=== PATIENT | female | born 1940 | race Native Hawaiian/Other Pacific Islander ===

== ENCOUNTER 2018-02-17 08:20 | Day surgery (SDC) | payer OTHER ==
[2018-02-17 08:54] LABS: PLATELET COUNT 477 K/uL (152-353)
[2018-02-17 09:09] LABS: PARTIAL THROMBOPLASTIN TIME 23.2 SECONDS (24.5-33.6)
[2018-02-17 09:29] LABS: POTASSIUM 5.2 mmol/L (3.6-5.2)
== END 2018-02-17 13:52 | disposition home or self-care (01) ==
LOC: OR 08:20
PROVIDERS: Student in an Organized Health Care Education/Training Program
PROC: 06BY4ZC Excision of Hemorrhoidal Plexus, Percutaneous Endoscopic Approach (ICD-10-PCS; principal; 2018-02-17)
DX: K64.2 Third degree hemorrhoids (principal)
CPT/HCPCS: 80053; 85027; 85610; 85730; J0690; J2001; J2405; J2704; J2765; J3010; J3490

== ENCOUNTER 2018-07-15 11:14 | Outpatient (CLI) | payer OTHER ==
[2018-07-15 11:31] LABS: PLATELET COUNT 690 K/uL (152-353)
== END 2018-07-15 21:35 | disposition home or self-care (01) ==
LOC: LABW 11:14
PROVIDERS: Internal Medicine Cardiovascular Disease
DX: R53.81 Other malaise (principal); R53.83 Other fatigue
CPT/HCPCS: 36415; 85027

== ENCOUNTER 2019-03-03 09:24 | Outpatient (CLI) | payer OTHER | END 2019-03-03 23:59 | LOC: RESP 09:24 | DX: I25.10 Atherosclerotic heart disease of native coronary artery without angina pectoris (principal) | CPT/HCPCS: 93306 ==

== ENCOUNTER 2020-02-10 14:39 | Outpatient (CLI) | payer OTHER | END 2020-02-10 19:34 | disposition home or self-care (01) | LOC: RESP 14:39 | DX: I48.91 Unspecified atrial fibrillation (principal) ==